=== PATIENT | female | born 1975 | race Hispanic/Latino ===

== ENCOUNTER 2016-10-15 07:27 | Emergency (ER) | payer MEDICARE ==
[2016-10-15 07:33] VITALS: RESP 16
[2016-10-15 08:36] LABS: RBC URINE 2 /hpf (0-3); URINE BILIRUBIN NEGATIVE (NEGATIVE); URINE BLOOD NEGATIVE (NEGATIVE); URINE COLOR Yellow (YELLOW); URINE GLUCOSE (UA) NORMAL (Normal); URINE KETONE NEGATIVE (NEGATIVE); URINE LEUKOCYTE ESTERASE NEG Leu/uL (Negative); URINE PROTEIN NEGATIVE (NEGATIVE); URINE UROBILINOGEN NORMAL mg/dL (0.2-1.0); WBC URINE 2 /hpf (0-5)
--- NOTE | 2016-10-15 08:53 | C.PDOC ---
History Of Present Illness 40 y/o female presents to ED requesting a test for diabetes. Patient reports increased urinary frequency for the last few months. She states she could not see her PCP because he is on vacation. Denies any other symptoms. Time Seen by Provider: 10/15/16 07:40 Chief Complaint (Nursing): Female Genitourinary History Per: Patient History/Exam Limitations: no limitations Onset/Duration Of Symptoms: Days Current Symptoms Are (Timing): Still Present Recent travel outside of the [place] States: No Past Medical History Reviewed: Historical Data, Nursing Documentation, Vital Signs Vital Signs: Last Vital Signs Temp 97.4 F L 10/15/16 07:32 Pulse 84 10/15/16 07:32 Resp 16 10/15/16 07:32 BP 120/84 10/15/16 07:32 Pulse Ox 98 10/15/16 08:53 - Medical History PMH: Bipolar Disorder, Depression, HTN Family History: States: Unknown Family Hx - Social History Hx Alcohol Use: No Hx Substance Use: No Review Of Systems Except As Marked, All Systems Reviewed And Found Negative. Constitutional: Negative for: Fever, Chills Cardiovascular: Negative for: Chest Pain Respiratory: Negative for: Shortness of Breath, Wheezing Genitourinary: Positive for: Frequency. Negative for: Dysuria Skin: Negative for: Rash Physical Exam - Physical Exam Appears: Non-toxic, No Acute Distress Skin: Normal Color, Warm, Dry Head: Atraumatic, Normacephalic Oral Mucosa: Moist Chest: Symmetrical Cardiovascular: Rhythm Regular Respiratory: Normal Breath Sounds, No Rales, No Rhonchi, No Wheezing Gastrointestinal/Abdominal: Soft, No Tenderness Back: Normal Inspection Extremity: Normal ROM, Capillary Refill (< 2 sec. ) Neurological/Psych: Oriented x3, Normal Speech, Normal Cognition ED Course And Treatment O2 Sat by Pulse Oximetry: 98 (RA) Pulse Ox Interpretation: Normal Progress Note: Fingerstick blood glucose test and UA ordered, reviewed. Medical Decision Making Medical Decision Making: UA normal POC glu 104 Disposition - Disposition Referrals: [facility] [Outside] Disposition: HOME/ ROUTINE Disposition Time: 09:23 Condition: GOOD Additional Instructions: Follow up with you PCP Take all usual meds Forms: General Discharge Instructions - Clinical Impression Clinical Impression: Encounter for medical screening examination - Scribe Statement The provider has reviewed the documentation as recorded by the Scribe Hugh Washburna Provider Attestation: All medical record entries made by the Victoriano were at my direction and personally dictated by me. I have reviewed the chart and agree that the record accurately reflects my personal performance of the history, physical exam, medical decision making, and the department course for this patient. I have also personally directed, reviewed, and agree with the discharge instructions and disposition.
[2016-10-15 09:30] VITALS: BP 128/70; PULSE 79; TEMP 98.2; O2SAT 100
== END 2016-10-15 09:29 | disposition home or self-care (01) ==
LOC: C.ER 07:27
DX: Z13.1 Encounter for screening for diabetes mellitus (principal)

== ENCOUNTER 2017-05-10 02:54 | Emergency (ER) | payer MEDICARE ==
--- NOTE | 2017-05-10 03:13 | C.PDOC ---
History Of Present Illness Patient presents to ED with complaints of depression and suicidal ideation. Patient states taking Advil PM. Denies any physical complaints. Time Seen by Provider: 05/10/17 03:12 Chief Complaint (Nursing): Psychiatric Evaluation History Per: Patient History/Exam Limitations: no limitations Onset/Duration Of Symptoms: Hrs Current Symptoms Are (Timing): Still Present Suicide/Self Injury Attempted (Context): None Modifying Factor(s): None Associated Symptoms: Depression, Suicidal Thoughts. denies: Anger Recent travel outside of the [place] States: No Past Medical History Reviewed: Historical Data, Nursing Documentation, Vital Signs Vital Signs: Last Vital Signs Temp 98.4 F 05/10/17 05:30 Pulse 102 H 05/10/17 05:30 Resp 22 05/10/17 05:30 BP 136/87 05/10/17 05:30 Pulse Ox 97 05/10/17 06:33 - Medical History PMH: Bipolar Disorder, Depression, HTN Surgical History: No Surg Hx Family History: States: No Known Family Hx - Social History Hx Alcohol Use: No Hx Substance Use: No - Immunization History Hx Influenza Vaccination: No Review Of Systems Skin: Negative for: Rash Neurological: Negative for: Weakness Psych: Positive for: Depression, Suicidal ideation Physical Exam - Physical Exam Appears: Non-toxic, Other (Awake, alert, pleasant and cooperative) Skin: Warm, Dry Head: Normacephalic Eye(s): bilateral: Normal Inspection Oral Mucosa: Moist Chest: Symmetrical, No Tenderness Cardiovascular: Rhythm Regular Respiratory: No Rales, No Rhonchi, No Wheezing Gastrointestinal/Abdominal: Soft, No Tenderness Neurological/Psych: Oriented x3, Normal Speech, Normal Cognition ED Course And Treatment - Laboratory Results Result Diagrams: 05/10/17 03:27 05/10/17 03:27 O2 Sat by Pulse Oximetry: 97 (Room air) Pulse Ox Interpretation: Normal Progress Note: Ordered blood work and Urinalysis. Crisis notified. Disposition Counseled Patient/Family Regarding: Studies Performed, Diagnosis - Disposition Disposition Time: 03:13 Condition: UNKNOWN Forms: [facility] (Faroese) - Clinical Impression Clinical Impression: Depression - Scribe Statement The provider has reviewed the documentation as recorded by the Scribe Jluis Lucero All medical record entries made by the Scribe were at my direction and personally dictated by me. I have reviewed the chart and agree that the record accurately reflects my personal performance of the history, physical exam, medical decision making, and the department course for this patient. I have also personally directed, reviewed, and agree with the discharge instructions and disposition. Physician Patient Turnover Patient Signed Over To: Elton Escalante Handoff Comments: pending crisis eval and disposition
[2017-05-10 03:31] LABS: BASO # 0.1 K/uL (0.0-0.2); EOS # 0.4 K/uL (0.0-0.7); EOS % 3.4 % (0.0-4.0); HEMOGLOBIN 11.2 g/dL (11.0-16.0); LYMPH # 3.3 K/uL (1.0-4.3); LYMPH % 31.3 % (20.0-40.0); MEAN CELL VOLUME 78.5 fL (81.0-99.0); MEAN CORPUSCULAR HEMOGLOBIN 26.3 pg (27.0-31.0); MEAN CORPUSCULAR HGB CONC 33.5 g/dL (33.0-37.0); MEAN PLATELET VOLUME 8.2 fL (7.2-11.7); MONO # 0.7 K/uL (0.0-0.8); MONO % 6.9 % (0.0-10.0); NEUT % 57.4 % (50.0-75.0); RBC 4.25 Mil/uL (3.80-5.20); RED CELL DISTRIBUTION WIDTH 15.2 % (11.5-14.5); WHITE BLOOD COUNT 10.4 K/uL (4.8-10.8)
[2017-05-10 03:39] LABS: SQUAMOUS EPITHIAL 2 /hpf (0-5); URINE BACTERIA RARE (<OCC); URINE BILIRUBIN NEGATIVE (NEGATIVE); URINE CLARITY Hazy (Clear); URINE COLOR Yellow (YELLOW); URINE GLUCOSE (UA) NORMAL (Normal); URINE LEUKOCYTE ESTERASE NEG Leu/uL (Negative); URINE NITRATE NEGATIVE (NEGATIVE); URINE PROTEIN NEGATIVE (NEGATIVE); URINE UROBILINOGEN NORMAL mg/dL (0.2-1.0)
[2017-05-10 03:40] LABS: HCG,QUALITATIVE URINE NEGATIVE (NEGATIVE); URINE BLOOD TRACE (NEGATIVE)
[2017-05-10 03:45] LABS: BARBITURATES, UR NEGATIVE (NEGATIVE); BENZODIAZEPINES, UR NEGATIVE (NEGATIVE); OPIATES, UR NEGATIVE (NEGATIVE); PHENCYCLIDINE, UR NEGATIVE (NEGATIVE)
[2017-05-10 03:47] LABS: ALB/GLOB RATIO 1.2 (1.0-2.1); ALT/SGPT 27 U/L (9-52); AST/SGOT 15 U/L (14-36); BLOOD UREA NITROGEN 15 mg/dL (7-17); CALCIUM 7.9 mg/dl (8.6-10.4); GFR AFRICAN-AMERICAN > 60; GFR NON-AFRICAN AMERICAN > 60
[2017-05-10 10:57] VITALS: BP 130/82; PULSE 70; RESP 16; TEMP 98.7; O2SAT 99
--- NOTE | 2017-05-10 11:31 | RAD ---
HISTORY: psych COMPARISON: No prior. FINDINGS: LUNGS: No active pulmonary disease. PLEURA: No significant pleural effusion identified, no pneumothorax apparent. CARDIOVASCULAR: Normal. OSSEOUS STRUCTURES: No significant abnormalities. VISUALIZED UPPER ABDOMEN: Normal. OTHER FINDINGS: None. IMPRESSION: No active disease.
== END 2017-05-10 11:45 | disposition short-term general hospital (02) ==
LOC: C.ER 02:54
DX: F32.9 Major depressive disorder, single episode, unspecified (principal)
CPT/HCPCS: 71045; 80053; 81001; 84703; 85025; 99285; G0480

== ENCOUNTER 2017-08-29 16:16 | Inpatient (IN) | payer MEDICAID, MEDICARE ==
[2017-08-29 16:21] VITALS: BMI 23.5
[2017-08-29 17:07] LABS: BASO # 0.1 K/uL (0.0-0.2); BASO % 0.9 % (0.0-2.0); EOS # 0.3 K/uL (0.0-0.7); EOS % 2.8 % (0.0-4.0); HEMOGLOBIN 11.7 g/dL (11.0-16.0); LYMPH # 2.9 K/uL (1.0-4.3); LYMPH % 31.4 % (20.0-40.0); MEAN CELL VOLUME 78.7 fL (81.0-99.0); MEAN CORPUSCULAR HEMOGLOBIN 25.6 pg (27.0-31.0); MEAN CORPUSCULAR HGB CONC 32.6 g/dL (33.0-37.0); MEAN PLATELET VOLUME 7.7 fL (7.2-11.7); MONO # 0.8 K/uL (0.0-0.8); MONO % 8.4 % (0.0-10.0); NEUT # 5.2 K/uL (1.8-7.0); NEUT % 56.5 % (50.0-75.0); RBC 4.57 Mil/uL (3.80-5.20); RED CELL DISTRIBUTION WIDTH 16.5 % (11.5-14.5); WHITE BLOOD COUNT 9.2 K/uL (4.8-10.8)
[2017-08-29 17:14] LABS: HCG,QUALITATIVE URINE NEGATIVE (NEGATIVE)
[2017-08-29 17:15] LABS: URINE BILIRUBIN NEGATIVE (NEGATIVE); URINE BLOOD NEGATIVE (NEGATIVE); URINE CLARITY Clear (Clear); URINE GLUCOSE (UA) NORMAL (Normal); URINE PROTEIN NEGATIVE (NEGATIVE); URINE UROBILINOGEN NORMAL mg/dL (0.2-1.0)
[2017-08-29 17:16] LABS: SQUAMOUS EPITHIAL 1 /hpf (0-5); URINE BACTERIA OCC (<OCC); URINE LEUKOCYTE ESTERASE NEG Leu/uL (Negative)
[2017-08-29 17:24] LABS: ALB/GLOB RATIO 1.2 (1.0-2.1); ALBUMIN 4.2 g/dL (3.5-5.0); ALT/SGPT 18 U/L (9-52); AST/SGOT 20 U/L (14-36); BLOOD UREA NITROGEN 11 mg/dL (7-17); CALCIUM 9.4 mg/dl (8.6-10.4); GFR AFRICAN-AMERICAN > 60; GFR NON-AFRICAN AMERICAN > 60
[2017-08-29 17:27] LABS: URINE COLOR YELLOW (YELLOW)
[2017-08-29 17:44] LABS: BARBITURATES, UR NEGATIVE (NEGATIVE); BENZODIAZEPINES, UR NEGATIVE (NEGATIVE); OPIATES, UR NEGATIVE (NEGATIVE); PHENCYCLIDINE, UR NEGATIVE (NEGATIVE)
--- NOTE | 2017-08-29 19:50 | C.PDOC ---
History Of Present Illness 41 y/o female presents to the ED complaining of feeling suicidal. Patient has a PMHx of depression. States she has a plan to overdose on pills but has not attempted to do so. No physical complaints offered. Time Seen by Provider: 08/29/17 16:20 Chief Complaint (Nursing): Psychiatric Evaluation History Per: Patient History/Exam Limitations: no limitations Onset/Duration Of Symptoms: Days Current Symptoms Are (Timing): Still Present Past Medical History Reviewed: Historical Data, Nursing Documentation, Vital Signs Vital Signs: Last Vital Signs Temp 97.8 F 08/29/17 19:57 Pulse 97 H 08/29/17 19:57 Resp 16 08/29/17 19:57 BP 126/68 08/29/17 19:57 Pulse Ox 96 08/29/17 20:30 - Medical History PMH: Bipolar Disorder, Depression, HTN Denies: Diabetes, Hepatitis, HIV, Seizures, Sexually Transmitted Disease Surgical History: No Surg Hx Family History: States: Unknown Family Hx - Social History Hx Alcohol Use: No Hx Substance Use: No - Immunization History Hx Tetanus Toxoid Vaccination: No Hx Influenza Vaccination: No Hx Pneumococcal Vaccination: No Review Of Systems Except As Marked, All Systems Reviewed And Found Negative. Psych: Positive for: Depression, Suicidal ideation Physical Exam - Physical Exam Appears: No Acute Distress, Chronically Ill (chronically mentally ill appearing) , Other (morbidly obese) Skin: Warm, Dry Head: Atraumatic, Normacephalic Eye(s): bilateral: Normal Inspection, PERRL, EOMI Oral Mucosa: Moist Neck: Normal ROM, Supple Chest: Symmetrical Cardiovascular: Rhythm Regular, No Murmur Respiratory: Normal Breath Sounds, No Rales, No Rhonchi, No Wheezing Gastrointestinal/Abdominal: Normal Exam, Soft, No Tenderness Extremity: Bilateral: Atraumatic, Normal Color And Temperature, Normal ROM Neurological/Psych: Oriented x3, Normal Speech, Other (Flat affect) ED Course And Treatment - Laboratory Results Result Diagrams: 08/29/17 17:04 08/29/17 17:04 Lab Interpretation: Normal (tox/etoh neg) Urine POC: Negative O2 Sat by Pulse Oximetry: 96 (RA) Pulse Ox Interpretation: Normal Reevaluation Time: 19:49 Reassessment Condition: Unchanged - Physician Consult Information Outcome Of Conversation: 1930: d/w Crisis, ok to admit. Medical Decision Making Medical Decision Making: Impression: depression, suicidal ideation with plan Initial Plan: --Alcohol serum --Urine drug screen --CMP --CBC --Urine HCG --Urinalysis --Patient placed on 1:1 observation --hot tamale worker will evaluate patient Labs reviewed, no emergently significant abnormalities. Patient is cleared for psychiatric admission. Case discussed with baking factory worker, patient will be admitted inpatient for depression under the service of Dr. Braden Disposition Doctor Will See Patient In The: Hospital Counseled Patient/Family Regarding: Studies Performed, Diagnosis - Disposition Disposition: HOSPITALIZED Disposition Time: 19:49 Condition: GOOD - Clinical Impression Clinical Impression: Depression - Scribe Statement The provider has reviewed the documentation as recorded by the Scribe (Kathy Sanchez) Provider Attestation: All medical record entries made by the Scribe were at my direction and personally dictated by me. I have reviewed the chart and agree that the record accurately reflects my personal performance of the history, physical exam, medical decision making, and the department course for this patient. I have also personally directed, reviewed, and agree with the discharge instructions and disposition.
--- NOTE | 2017-08-29 22:39 | CP.PCM.CON ---
<Sabina Carrington - Last Filed: 08/29/17 22:39> History of Present Illness - History of Present Illness History of Present Illness: HPI: Patient is a 41 year old female with a past medical history of bipolar disorder, GERD, and hypertension who presents for suicidal ideation. Medicine team was consulted for possible exposure to HIV. Patient says she was having a manic episode and had unprotected vaginal intercourse yesterday afternoon with a stranger. Patient says she does not know his history and is worried she may have contracted HIV from him. Patient admits to a 2 day history of thick, white , malodorous vaginal discharge as well as dysuria with dark malodorous urine. Patient also complains of associated headache and dizziness. She denies fever, chills, chest pain, SOB, palpitations, cough, sore throat, abdominal pain, nausea, vomiting, diarrhea, constipation, and lower extremity pain/swelling. PMH: bipolar disorder, GERD, and hypertension Meds: Norvasc 10 mg QD, Prilosec 20 mg QD, Wellbutrin XL 150 mg QD, Lamictal 100 mg QD, Ambien 10 mg Allergies: denies PSH: denies FH: unknown; patient was in foster care as a child SH: denies smoking, alcohol, and drug use Review of Systems - Review of Systems All systems: reviewed and no additional remarkable complaints except (as per HPI ) Past Patient History - Infectious Disease Hx of Infectious Diseases: None - Past Social History Smoking Status: Never Smoked - CARDIAC Hx Hypertension: Yes - PULMONARY Hx Tuberculosis: No - NEUROLOGICAL Hx Seizures: No - HEMATOLOGICAL/ONCOLOGICAL Hx Human Immunodeficiency Virus (HIV): No - GASTROINTESTINAL Hx Gastroesophageal Reflux: Yes - GENITOURINARY/GYNECOLOGICAL Hx Sexually Transmitted Disorders: No - PSYCHIATRIC Hx Substance Use: Yes - SURGICAL HISTORY Hx Surgeries: No - ANESTHESIA Hx Anesthesia: No Meds Allergies/Adverse Reactions: Allergies Allergy/AdvReac Type Severity Reaction Status Date / Time No Known Allergies Allergy Verified 05/10/17 03:02 - Medications Medications: Current Medications Amlodipine Besylate (Norvasc) 10 mg PO DAILY DEANNA Miconazole (Monistat 3) 200 mg VAG HS DEANNA Stop: 08/31/17 22:01 Nitrofurantoin Macrocrystals (Macrobid) 100 mg PO Q12H DEANNA PRN Reason: Protocol Physical Exam - Constitutional Appears: Non-toxic, No Acute Distress - Head Exam Head Exam: ATRAUMATIC, NORMAL INSPECTION, NORMOCEPHALIC - Eye Exam Eye Exam: EOMI, Normal appearance, PERRL - ENT Exam ENT Exam: Mucous Membranes Moist - Neck Exam Neck exam: Negative for: Lymphadenopathy, Thyromegaly - Respiratory Exam Respiratory Exam: Clear to Auscultation Bilateral, NORMAL BREATHING PATTERN. absent: Rales, Rhonchi, Wheezes - Cardiovascular Exam Cardiovascular Exam: RRR, +S1, +S2 - GI/Abdominal Exam GI & Abdominal Exam: Normal Bowel Sounds, Soft. absent: Distended, Tenderness - Extremities Exam Extremities exam: Positive for: normal inspection. Negative for: calf tenderness, pedal edema - Neurological Exam Neurological exam: Alert, Oriented x3 - Psychiatric Exam Psychiatric exam: Depressed - Skin Skin Exam: Dry, Intact, Normal Color, Rash (non pruritic, macular rash of chest) , Warm Results - Vital Signs Recent Vital Signs: Last Vital Signs Temp 97.8 F 08/29/17 19:57 Pulse 97 H 08/29/17 19:57 Resp 18 08/29/17 21:37 BP 126/68 08/29/17 19:57 Pulse Ox 96 08/29/17 20:31 - Labs Result Diagrams: 08/29/17 17:04 08/29/17 17:04 Labs: Laboratory Results - last 24 hr 08/29/17 08/29/17 08/29/17 17:04 17:04 17:04 WBC 9.2 RBC 4.57 Hgb 11.7 Hct 35.9 MCV 78.7 L MCH 25.6 L MCHC 32.6 L RDW 16.5 H Plt Count 325 MPV 7.7 Neut % (Auto) 56.5 Lymph % (Auto) 31.4 [place] % (Auto) 8.4 Eos % (Auto) 2.8 Baso % (Auto) 0.9 Neut # (Auto) 5.2 Lymph # (Auto) 2.9 [place] # (Auto) 0.8 Eos # (Auto) 0.3 Baso # (Auto) 0.1 Sodium 143 Potassium 4.8 Chloride 105 Carbon Dioxide 23 Anion Gap 20 BUN 11 Creatinine 0.9 Est GFR ( Amer) > 60 Est GFR (Non-Af Amer) > 60 Random Glucose 112 H Calcium 9.4 Total Bilirubin 0.4 AST 20 ALT 18 Alkaline Phosphatase 59 Total Protein 7.6 Albumin 4.2 Globulin 3.4 Albumin/Globulin Ratio 1.2 Urine Color Yellow Urine Clarity Clear Urine pH 6.0 Ur Specific [place] 1.012 Urine Protein Negative Urine Glucose (UA) Normal Urine Ketones Negative Urine Blood Negative Urine Nitrate Positive H Urine Bilirubin Negative Urine Urobilinogen Normal Ur Leukocyte Esterase Neg Urine WBC (Auto) 1 Urine RBC (Auto) 1 Ur Squamous Epith Cells 1 Urine Bacteria Occ H Urine HCG, Qual Negative Urine Opiates Screen Urine Methadone Screen Ur Barbiturates Screen Ur Phencyclidine Scrn Ur Amphetamines Screen U Benzodiazepines Scrn U Oth Cocaine Metabols U Cannabinoids Screen Alcohol, Quantitative < 10 08/29/17 17:04 WBC RBC Hgb Hct MCV MCH MCHC RDW Plt Count MPV Neut % (Auto) Lymph % (Auto) [place] % (Auto) Eos % (Auto) Baso % (Auto) Neut # (Auto) Lymph # (Auto) [place] # (Auto) Eos # (Auto) Baso # (Auto) Sodium Potassium Chloride Carbon Dioxide Anion Gap BUN Creatinine Est GFR ( Amer) Est GFR (Non-Af Amer) Random Glucose Calcium Total Bilirubin AST ALT Alkaline Phosphatase Total Protein Albumin Globulin Albumin/Globulin Ratio Urine Color Urine Clarity Urine pH Ur Specific [place] Urine Protein Urine Glucose (UA) Urine Ketones Urine Blood Urine Nitrate Urine Bilirubin Urine Urobilinogen Ur Leukocyte Esterase Urine WBC (Auto) Urine RBC (Auto) Ur Squamous Epith Cells Urine Bacteria Urine HCG, Qual Urine Opiates Screen Negative Urine Methadone Screen Negative Ur Barbiturates Screen Negative Ur Phencyclidine Scrn Negative Ur Amphetamines Screen Negative U Benzodiazepines Scrn Negative U Oth Cocaine Metabols Negative U Cannabinoids Screen Negative Alcohol, Quantitative Assessment & Plan - Assessment and Plan (Free Text) Plan: Unprotected [place] * Potential Exposure to HIV and other STDs - within 72H window for PEP (see below) * f/u Hepatitis panel - may start Post Exposure Prophylaxis (PEP) once this comes back negative * PEP: Raltegravir 400 mg BID and Truvada (Tenofovir DF 300 mg/Emtricitabine 200 mg) daily * f/u Chlamydia/GC * Plan B 1-step per patient request Dysuria * UA positive for Nitrates and occ bacteria * f/u repeat UA * f/u urine culture * Macrobid 100 mg PO Q12 Vaginal Discharge * Likely yeast infection * Monistat History of Hypertension * continue Norvasc 10 mg History of GERD * Protonix 20 mg daily Prophylaxis * DVT: Heparin * GI: on protonix for GERD <Rick Bernard - Last Filed: 08/30/17 06:06> Meds - Medications Medications: Current Medications Al Hydrox/Mg Hydrox/Simethicone (Maalox 30 Ml) 30 ml PO Q6H PRN PRN Reason: Indigestion / Heartburn Last Admin: 08/30/17 01:13 Dose: 30 ml Amlodipine Besylate (Norvasc) 10 mg PO DAILY [facility] Bupropion HCl (Wellbutrin Xl) 150 mg PO DAILY DEANNA Hydroxyzine HCl (Atarax) 25 mg PO Q6 PRN PRN Reason: Anxiety Lamotrigine (Lamictal) 25 mg PO DAILY [facility] Miconazole Nitrate (Monistat 7 Vaginal Cream) 1 ea VG HS [facility] Last Admin: 08/30/17 00:21 Dose: 1 applic Nitrofurantoin Macrocrystals (Macrobid) 100 mg PO Q12H DEANNA PRN Reason: Protocol Last Admin: 08/29/17 22:57 Dose: 100 mg Pantoprazole Sodium (Protonix Ec Tab) 20 mg PO DAILY DEANNA Trazodone HCl (Desyrel) 100 mg PO HS DEANNA Last Admin: 08/29/17 23:53 Dose: 100 mg Results - Vital Signs Recent Vital Signs: Last Vital Signs Temp 97.8 F 08/29/17 19:57 Pulse 97 H 08/29/17 19:57 Resp 18 08/29/17 21:37 BP 126/68 08/29/17 19:57 Pulse Ox 96 08/29/17 20:31 - Labs Result Diagrams: 08/29/17 17:04 08/29/17 17:04 Labs: Laboratory Results - last 24 hr 08/29/17 08/29/17 08/29/17 17:04 17:04 17:04 WBC 9.2 RBC 4.57 Hgb 11.7 Hct 35.9 MCV 78.7 L MCH 25.6 L MCHC 32.6 L RDW 16.5 H Plt Count 325 MPV 7.7 Neut % (Auto) 56.5 Lymph % (Auto) 31.4 [place] % (Auto) 8.4 Eos % (Auto) 2.8 Baso % (Auto) 0.9 Neut # (Auto) 5.2 Lymph # (Auto) 2.9 [place] # (Auto) 0.8 Eos # (Auto) 0.3 Baso # (Auto) 0.1 Sodium 143 Potassium 4.8 Chloride 105 Carbon Dioxide 23 Anion Gap 20 BUN 11 Creatinine 0.9 Est GFR ( Amer) > 60 Est GFR (Non-Af Amer) > 60 Random Glucose 112 H Calcium 9.4 Total Bilirubin 0.4 AST 20 ALT 18 Alkaline Phosphatase 59 Total Protein 7.6 Albumin 4.2 Globulin 3.4 Albumin/Globulin Ratio 1.2 Urine Color Yellow Urine Clarity Clear Urine pH 6.0 Ur Specific [place] 1.012 Urine Protein Negative Urine Glucose (UA) Normal Urine Ketones Negative Urine Blood Negative Urine Nitrate Positive H Urine Bilirubin Negative Urine Urobilinogen Normal Ur Leukocyte Esterase Neg Urine WBC (Auto) 1 Urine RBC (Auto) 1 Ur Squamous Epith Cells 1 Urine Bacteria Occ H Urine HCG, Qual Negative Urine Opiates Screen Urine Methadone Screen Ur Barbiturates Screen Ur Phencyclidine Scrn Ur Amphetamines Screen U Benzodiazepines Scrn U Oth Cocaine Metabols U Cannabinoids Screen Alcohol, Quantitative < 10 08/29/17 17:04 WBC RBC Hgb Hct MCV MCH MCHC RDW Plt Count MPV Neut % (Auto) Lymph % (Auto) [place] % (Auto) Eos % (Auto) Baso % (Auto) Neut # (Auto) Lymph # (Auto) [place] # (Auto) Eos # (Auto) Baso # (Auto) Sodium Potassium Chloride Carbon Dioxide Anion Gap BUN Creatinine Est GFR ( Amer) Est GFR (Non-Af Amer) Random Glucose Calcium Total Bilirubin AST ALT Alkaline Phosphatase Total Protein Albumin Globulin Albumin/Globulin Ratio Urine Color Urine Clarity Urine pH Ur Specific [place] Urine Protein Urine Glucose (UA) Urine Ketones Urine Blood Urine Nitrate Urine Bilirubin Urine Urobilinogen Ur Leukocyte Esterase Urine WBC (Auto) Urine RBC (Auto) Ur Squamous Epith Cells Urine Bacteria Urine HCG, Qual Urine Opiates Screen Negative Urine Methadone Screen Negative Ur Barbiturates Screen Negative Ur Phencyclidine Scrn Negative Ur Amphetamines Screen Negative U Benzodiazepines Scrn Negative U Oth Cocaine Metabols Negative U Cannabinoids Screen Negative Alcohol, Quantitative Assessment & Plan - Date & Time Date: 08/30/17 (I have seen and examined the patient. I agree with the findings and plan of care as documented by Dr. Carrington. Medicine team consulted due to high risk sexual behavior. Unprotected vaginal intercourse. Check hepatitis panel and liver function before starting PEP regimen. Also with dysuria. Positive for nitrates. Macrobid for now. Urine culture. Monitor for acute changes.) Time: 06:04 Attending/Attestation - Attestation I have personally seen and examined this patient.: Yes I have fully participated in the care of the patient.: Yes I have reviewed all pertinent clinical information: Yes
[2017-08-29] MEDS ORDERED: Miconazole 2% Vaginal Cream(45 gm) VAG SCH (23:18)
[2017-08-30] MEDS: Miconazole 2% Vaginal Cream(45 gm) VG SCH ×2 (00:21→22:08)
[2017-08-30] MEDS: Aluminum Hydroxide/Magnesium Hydroxide Susp (30 mL) PO PRN ×2 (01:13→23:44)
--- NOTE | 2017-08-30 02:54 | PCM.BM ---
<Mary Sparrow - Last Filed: 08/30/17 02:53> Treatment Plan Problems - Problems identified on initial assessmt Depression Date Initiated: 08/29/17 Time Initiated: 20:20 Assessment reference: NA Status: Active Suicidal Ideation Date Initiated: 08/29/17 Time Initiated: 20:20 Assessment reference: NA Status: Monitor Treatment assets and liabiliti Patient Assests: ADL independent, negotiates basic needs Patient Liabilities: poor support system, relationship conflicts - Milieu Protocol Maintain good personal hygiene: daily Encourage regular showers, daily Remind patient to perform daily oral care, every shift Assist patient to perform ADL's Conduct patient checks and document Observation sheet: Q15 minutes Maintain personal safety: every shift Educate patient to report safety concerns to staff, every shift Monitor environment for contraband/sharps Medication safety: Monitor for expected outcome, potential side effects: every shift, Assess barriers to learning: every shift, Assess readiness for medication education: every shift <Zuleika Guzman - Last Filed: 09/01/17 13:27> Family Contact Family involvement: Famliy/SO not involved - Goals for Treatment Patient goals for treatment: "I need therapy." Discharge/Continuing Care - Education Needs Education Needs: Patient Medication, Patient Coping Skills - Discharge Discharge Criteria: Tolerates medication w/o severe side effects, Reduction of target symptoms Discharge to:: Home - Treatment Team Participation Discussed with Family/SO: No Was Patient/Family/SO present at Treatment Team Meeting: Yes <Dariela Patel - Last Filed: 09/01/17 16:57> - Diagnosis (1) Depression Status: Acute Interventions: 09/01/17 16:56 * Assess/adjust medications daily and /or as needed * See patient on an individual basis 7x/week to assess symptoms of depression * Monitor for side effects & effectiveness of medications *
[2017-08-30] MEDS: Pantoprazole 20 mg EC Tab PO SCH ×2 (08:44→10:33)
[2017-08-30] MEDS: buPROPion 150 mg/24 Hours XL Tab PO SCH (09:54)
--- NOTE | 2017-08-30 11:23 | CP.PCM.PN ---
Subjective - Date & Time of Evaluation Date of Evaluation: 08/30/17 Time of Evaluation: 11:10 - Subjective Subjective: Patient was seen and examined by me She was not in any acute distress. She was walking in the hallway As mentioned in the previous H & P she was concerned about possible STD exposure. She denied chest pain, denied shortness of breath, denied palpitations. Last night's team ordered hepatitis study and GC Chlymadia was ordered, will also check RPR, HIV 1,2 and HIV 4th generation study as well. The UA will be repeated - for now she was started on macrobid - agree with this. She reports some vaginal discharge that is scant and clear, she was already started on mono stat 7 by psychiatry, I agree with this Objective - Vital Signs/Intake and Output Vital Signs (last 24 hours): Temp Pulse Resp BP Pulse Ox 98.0 F 74 20 122/67 98 08/30/17 06:44 08/30/17 06:44 08/30/17 06:44 08/30/17 06:44 08/30/17 06:44 - Medications Medications: Current Medications Acetaminophen (Tylenol 325mg Tab) 650 mg PO Q6 PRN PRN Reason: Headache Al Hydrox/Mg Hydrox/Simethicone (Maalox 30 Ml) 30 ml PO Q6H PRN PRN Reason: Indigestion / Heartburn Last Admin: 08/30/17 01:13 Dose: 30 ml Amlodipine Besylate (Norvasc) 10 mg PO DAILY [facility] Last Admin: 08/30/17 09:54 Dose: 10 mg Bupropion HCl (Wellbutrin Xl) 150 mg PO DAILY [facility] Last Admin: 08/30/17 09:54 Dose: 150 mg Diphenhydramine HCl (Benadryl) 25 mg PO TID [facility] Stop: 09/01/17 14:01 Hydroxyzine HCl (Atarax) 25 mg PO Q6 PRN PRN Reason: Anxiety Lamotrigine (Lamictal) 25 mg PO DAILY [facility] Last Admin: 08/30/17 09:54 Dose: 25 mg Lamotrigine (Lamictal) 100 mg PO QPM [facility] Miconazole Nitrate (Monistat 7 Vaginal Cream) 1 ea VG HS [facility] Last Admin: 08/30/17 00:21 Dose: 1 applic Nitrofurantoin Macrocrystals (Macrobid) 100 mg PO Q12H [facility] PRN Reason: Protocol Last Admin: 08/30/17 09:54 Dose: 100 mg Pantoprazole Sodium (Protonix Ec Tab) 20 mg PO DAILY [facility] Last Admin: 08/30/17 10:33 Dose: Not Given Trazodone HCl (Desyrel) 100 mg PO [facility] Last Admin: 08/29/17 23:53 Dose: 100 mg Zolpidem Tartrate (Ambien) 5 mg PO [facility] - Labs Labs: 08/29/17 17:04 08/29/17 17:04 - Constitutional Appears: Well, Non-toxic, No Acute Distress - Head Exam Head Exam: NORMAL INSPECTION - Eye Exam Eye Exam: EOMI, Normal appearance - ENT Exam ENT Exam: Mucous Membranes Moist - Respiratory Exam Respiratory Exam: Clear to Ausculation Bilateral, NORMAL BREATHING PATTERN - GI/Abdominal Exam GI & Abdominal Exam: Soft, Normal Bowel Sounds - Neurological Exam Neurological Exam: Alert, Oriented x3 Neuro motor strength exam: Left Upper Extremity: 5, Right Upper Extremity: 5, Left Lower Extremity: 5, Right Lower Extremity: 5 - Psychiatric Exam Psychiatric exam: Normal Affect, Normal Mood - Skin Skin Exam: Normal Color, Warm Assessment and Plan - Assessment and Plan (Free Text) Assessment: Unprotected [place] 08/30: Ordered HIV 1,2 antibody as well as HIV 4th generation. RPR, and GC/ Chymadia ordered as well. * Potential Exposure to HIV and other STDs - within 72H window for PEP (see below) * f/u Hepatitis panel - may start Post Exposure Prophylaxis (PEP) once this comes back negative * PEP: Raltegravir 400 mg BID and Truvada (Tenofovir DF 300 mg/Emtricitabine 200 mg) daily * f/u Chlamydia/GC * Plan B 1-step per patient request Dysuria * UA positive for Nitrates and occ bacteria * f/u repeat UA * f/u urine culture * Macrobid 100 mg PO Q12 Vaginal Discharge 08/30: Was started on monostat 7. Agree with this. Pending further urine studies On Macrobid as well. History of Hypertension * continue Norvasc 10 mg History of GERD * Protonix 20 mg daily Prophylaxis * DVT: Heparin * GI: on protonix for GERD
--- NOTE | 2017-08-30 11:33 | PCM.PSYCH ---
Initial Psychiatric Evaluation - Initial Psychiatric Evaluation Type of Admission: Voluntary Legal Status: Capacity Chief Complaint (in patient's own words): "Depressed" History of Present Illness and Precipitating Events: The pt is seen, chart reviewed, case discussed She is a 41 y/o LF, single, no child, unemployed and lives alone. She reports feeling suicidal last 2-3 days, depressed x weeks, and reports other depressive sxs. She has been dx'ed with bipolar d/o and reports a manic episode in the past but denies psychosis and jennifer now. A new stressor is an unprotected sex she had with someone she did not know much. She also has financial stressors. Denies drugs, alcohol or cigarettes. Past psych hx: 2 joaquín attempts years ago, previous psych admissions On Lamictal 100 mg, wellbutrin xl 150, ambien 10 Family psych hx: Adopted child but she known mo haad bipolar d/o Medical hx: GERD, HTN, obese Current Medications: Active Medications Generic Name Dose Route Start Last Admin Trade Name Freq PRN Reason Stop Dose Admin Acetaminophen 650 mg 08/30/17 11:18 Tylenol 325mg Tab PO Q6 PRN Headache Al Hydrox/Mg Hydrox/Simethicone 30 ml 08/30/17 01:09 08/30/17 01:13 Maalox 30 Ml PO 30 ml Q6H PRN Administration Indigestion / Heartburn Amlodipine Besylate 10 mg 08/30/17 10:00 08/30/17 09:54 Norvasc PO 10 mg DAILY [facility] Administration Bupropion HCl 150 mg 08/30/17 10:00 08/30/17 09:54 Wellbutrin Xl PO 150 mg DAILY [facility] Administration Diphenhydramine HCl 25 mg 08/30/17 14:00 Benadryl PO 09/01/17 14:01 TID [facility] Hydroxyzine HCl 25 mg 08/29/17 23:51 Atarax PO Q6 PRN Anxiety Lamotrigine 25 mg 08/30/17 10:00 08/30/17 09:54 Lamictal PO 25 mg DAILY [facility] Administration Lamotrigine 100 mg 08/30/17 18:00 Lamictal PO QPM [facility] Miconazole Nitrate 1 ea 08/29/17 23:45 08/30/17 00:21 Monistat 7 Vaginal Cream VG 1 applic HS [facility] Administration Nitrofurantoin Macrocrystals 100 mg 08/29/17 22:30 08/30/17 09:54 Macrobid PO 100 mg Q12H [facility] Administration Protocol Pantoprazole Sodium 20 mg 08/30/17 08:30 08/30/17 10:33 Protonix Ec Tab PO Not Given DAILY [facility] Trazodone HCl 100 mg 08/29/17 23:45 08/29/17 23:53 Desyrel PO 100 mg HS [facility] Administration Zolpidem Tartrate 5 mg 08/30/17 22:00 Ambien PO HS [facility] Past Psychiatric History - Past Psychiatric History Previous Treatment History: Inpatient Pertinent Medical Hx (Current Medical&Sleep Prob, Allergies): Allergies Allergy/AdvReac Type Severity Reaction Status Date / Time No Known Allergies Allergy Verified 05/10/17 03:02 Norvasc 10 mg PO DAILY 10/15/16 Omeprazole Magnesium [Prilosec Otc] 20 mg PO DAILY 10/15/16 Zolpidem [Ambien] 1 tab PO HS 10/15/16 buPROPion XL [Wellbutrin XL] 150 mg PO DAILY 10/15/16 lamoTRIgine [Lamictal] 100 mg PO DAILY 10/15/16 Review of Systems - Neurological Neurological: UNREMARKABLE - Psychiatric Psychiatric: Abnormal Sleep Pattern, Anhedonia, Anxiety, Change in Appetite, Depression, Difficulty Concentrating, Mood Swings. absent: Hallucinations, Homicidal Ideation, Suicidal Ideation Mental Status Examination - Personal Presentation Personal Presentation: Looks stated age - Affect Affect: Constricted - Motor Activity Motor Activity: Calm - Reliability in Providing Information Reliability in Providing Information: Good - Speech Speech: Organized - Mood Mood: Depressed, Anxious - Formal Thought Process Formal Thought Process: No Impairment - Cognitive Functions Orientation: Person, Place, Situation, Time Sensorium: Alert Attention/Concentration: Attentive Abstract Thinking: [place] Estimate of Intelligence: Average Judgement: Intact, as evidence by: Insight regarding need for hospitalization Memory: Recent intact, as evidence by: Ability to recall events of the day, Remote intact, as evidenced by: Abilit to recall sig. life events - Risk Risk: Diminished functioning - Strength & Assets Inventory Strength & Assets Inventory: Cooperative - Limitations Limitations: Living alone, Other DSM 5 DX - DSM 5 DSM 5 Diagnosis: Bipolar I d/o - depressed, severe - Recommended/Plan of Treatment Treatment Recommendations and Plan of Treatment: Start Lamictal as 125 mg and go up to 150 Prn medications All risks, benefits and alternatives of medications, including no medications, discussed and the patient understood and agreed. Attend groups and activities Individual therapy Psychoeducation and support Encourage compliance with meds and after care Refer to outpatient program Teach healthy lifestyle methods, i.e. diet, exercise, meditation Smoking cessation STD work up 32 min Projected ELOS: 5-6 days Prognosis: good w treatment
[2017-08-30 14:56] LABS: SQUAMOUS EPITHIAL 4 /hpf (0-5); URINE BACTERIA FEW (<OCC); URINE BILIRUBIN NEGATIVE (NEGATIVE); URINE BLOOD NEGATIVE (NEGATIVE); URINE CLARITY Hazy (Clear); URINE COLOR Yellow (YELLOW); URINE GLUCOSE (UA) NORMAL (Normal); URINE LEUKOCYTE ESTERASE NEG Leu/uL (Negative); URINE PROTEIN NEGATIVE (NEGATIVE); URINE UROBILINOGEN NORMAL mg/dL (0.2-1.0)
[2017-08-30] MEDS ORDERED: Miconazole 2% Vaginal Cream(45 gm) VAG SCH (22:00)
[2017-08-31 06:27] VITALS: O2SAT 99
[2017-08-31] MEDS ORDERED: Pantoprazole 20 mg EC Tab PO SCH (08:00)
[2017-08-31] MEDS: buPROPion 150 mg/24 Hours XL Tab PO SCH (09:11)
[2017-08-31] MEDS: Emtricitabine-Tenofovir 200 mg-300 mg Tab PO SCH (10:58)
--- NOTE | 2017-08-31 12:59 | CP.PCM.PN ---
Subjective - Date & Time of Evaluation Date of Evaluation: 08/31/17 Time of Evaluation: 12:52 - Subjective Subjective: PGY 2 progress note for medicine Pt seen and examined this am. Patient states overnight, she had a lot of heart burn. Patient currently denies having any acid reflux symptoms, CP, SOB, abd pain, N/V/D/C. Patient is complaining of diffuse flat rash on her chest and back that began about 3 weeks ago. Denies having any new products applied ot that area, denies having any new clothing. Patient has not tried any topical creams for the area. Rash is non-pruritic. Objective - Vital Signs/Intake and Output Vital Signs (last 24 hours): Temp Pulse Resp BP Pulse Ox 97.7 F 71 16 130/66 99 08/31/17 06:27 08/31/17 06:27 08/31/17 06:27 08/31/17 06:27 08/31/17 06:27 - Medications Medications: Current Medications Acetaminophen (Tylenol 325mg Tab) 650 mg PO Q6 PRN PRN Reason: Headache Last Admin: 08/30/17 22:13 Dose: 650 mg Al Hydrox/Mg Hydrox/Simethicone (Maalox 30 Ml) 30 ml PO Q6H PRN PRN Reason: Indigestion / Heartburn Last Admin: 08/30/17 23:44 Dose: 30 ml Amlodipine Besylate (Norvasc) 10 mg PO DAILY [facility] Last Admin: 08/31/17 09:12 Dose: 10 mg Bupropion HCl (Wellbutrin Xl) 150 mg PO DAILY [facility] Last Admin: 08/31/17 09:11 Dose: 150 mg Diphenhydramine HCl (Benadryl) 25 mg PO TID [facility] Stop: 09/01/17 14:01 Last Admin: 08/31/17 09:12 Dose: 25 mg Emtricitabine/Tenofovir (Truvada 200 Mg-300 Mg) 1 tab PO DAILY [facility] PRN Reason: Protocol Last Admin: 08/31/17 10:58 Dose: 1 tab Hydroxyzine HCl (Atarax) 25 mg PO Q6 PRN PRN Reason: Anxiety Last Admin: 08/31/17 01:30 Dose: 25 mg Lamotrigine (Lamictal) 25 mg PO DAILY [facility] Last Admin: 08/31/17 09:11 Dose: 25 mg Lamotrigine (Lamictal) 100 mg PO QPM [facility] Last Admin: 08/30/17 17:20 Dose: 100 mg Miconazole Nitrate (Monistat 7 Vaginal Cream) 1 ea VG HS [facility] Last Admin: 08/30/17 22:08 Dose: 1 applic Nitrofurantoin Macrocrystals (Macrobid) 100 mg PO Q12H [facility] PRN Reason: Protocol Last Admin: 08/31/17 09:32 Dose: 100 mg Pantoprazole Sodium (Protonix Ec Tab) 20 mg PO DAILY@0800 [facility] Last Admin: 08/31/17 07:48 Dose: 20 mg Raltegravir (Isentress) 400 mg PO BID [facility] PRN Reason: Protocol Last Admin: 08/31/17 10:58 Dose: 400 mg Zolpidem Tartrate (Ambien) 5 mg PO [facility] Last Admin: 08/30/17 22:03 Dose: 5 mg - Labs Labs: 08/29/17 17:04 08/29/17 17:04 - Constitutional Appears: Non-toxic, No Acute Distress - Head Exam Head Exam: ATRAUMATIC - ENT Exam ENT Exam: Mucous Membranes Moist - Respiratory Exam Respiratory Exam: Clear to Ausculation Bilateral. absent: Accessory Muscle Use , Rales, Rhonchi, Wheezes, Respiratory Distress - Cardiovascular Exam Cardiovascular Exam: REGULAR RHYTHM, +S1, +S2. absent: Gallop, Rubs, Murmur - GI/Abdominal Exam GI & Abdominal Exam: Soft, Normal Bowel Sounds. absent: Distended, Firm, Guarding, Rigid, Tenderness, Organomegaly - Extremities Exam Extremities Exam: absent: Pedal Edema, Tenderness - Neurological Exam Neurological Exam: Alert, Awake, Oriented x3 - Psychiatric Exam Psychiatric exam: Normal Affect, Normal Mood - Skin Skin Exam: Dry, Intact, Normal Color, Warm Additional comments: flat mildly erythematuous rash on chest, non-pruritic Assessment and Plan - Assessment and Plan (Free Text) Assessment: Unprotected [place] 08/31: HIV 1,2 4th gen results pending. Hepatitis pending. Patient started on PEP: Truvada 1 tab po QD and Isentress 400 mg po BID. Continue these medications for 1 month. Patient will require repeat HIV testing after completing course of these meds. Patient is made aware of this and is told to follow up at the [facility]. 08/30: Ordered HIV 1,2 antibody as well as HIV 4th generation. RPR, and GC/ Chymadia ordered as well. * Potential Exposure to HIV and other STDs - within 72H window for PEP (see below) * f/u Hepatitis panel - may start Post Exposure Prophylaxis (PEP) once this comes back negative * PEP: Raltegravir 400 mg BID and Truvada (Tenofovir DF 300 mg/Emtricitabine 200 mg) daily * f/u Chlamydia/GC * Plan B 1-step per patient request Dysuria * Improved * UA positive for Nitrates and occ bacteria * f/u repeat UA * f/u urine culture * Macrobid 100 mg PO Q12 Vaginal Discharge 08/30: Was started on monostat 7. Agree with this. Urine culture is contaminated. Repat UA was negative On Macrobid as well. History of Hypertension * continue Norvasc 10 mg History of GERD * Protonix 40 mg daily Rash * 0.5% hydrocortisone cream to be applied to affected area BID Prophylaxis * DVT: Heparin * GI: on protonix for GERD Case discussed with attending, Dr. Flynn
[2017-08-31] MEDS ORDERED: Pantoprazole 40 mg EC Tab PO SCH ×2 (13:05→22:00)
[2017-08-31] MEDS ORDERED: Hydrocortisone 0.5% Cream(30 gm) TOP SCH (18:00)
[2017-08-31] MEDS: Hydrocortisone 1% Cream (30 GM) TOP SCH (18:10)
[2017-08-31] MEDS: Miconazole 2% Vaginal Cream(45 gm) VG SCH (21:40)
[2017-09-01] MEDS: Pantoprazole 40 mg EC Tab PO SCH ×2 (08:37→16:34)
--- NOTE | 2017-09-01 08:38 | PCM.PYCHPN ---
Psychiatric Progress Note - Psychiatric Progress Note Patient seen today, length of contact: 18 MIN Patient Chief Complaint: I AM STILL ANGRY AT MYSELFFOR WHAT I DID TO MYSELF Problems Identified/Issues Discussed: PY SEEN AND EXAMINED DISCUSSED WITH STAFF NAUSEA TALKED WITH PT ABOUT NOT ISOLATING ABOUT HAVING HER DAYS PLANNED NAUSEA Medical Problems: NAUAEA Diagnostic Results: REVIEWED DSM 5 Symptoms Update: DEPRESSED ISOLATIVE Medication Change: Yes (PROTONIX) Medical Record Reviewed: Yes Mental Status Examination - Cognitive Function Orientation: Person, Place, Situation, Time Memory: Intact Attention: WNL Concentration: Poor Association: WNL Fund of Knowledge: WNL - Mood Mood: Depressed, Anxious - Affect Affect: Constricted - Speech Speech: Appropriate - Formal Thought Process Formal Thought Process: No Impairment - Suicidal Ideation Suicidal Ideation: No - Homicidal Ideation Homicidal Ideation: No Goal/Treatment Plan - Goal/Treatment Plan Need for Continued Stay: Severe depression anxiety Progress Toward Problem(s) and Goals/Treatment Plan: BIPOLAR DISORDER LAMICTAL WELLBUTRIN AMBIEN SUPPORTIVE PSYCHOTHERAPY GROUP MILIEU AND RECREATIONAL THERAPY Estimated Date of D/C: 09/09/17 - Smoking Cessation Smoking Cessation Initiated: No
[2017-09-01 08:44] LABS: HEPATITIS B SURFACE AG Negative (NEGATIVE)
[2017-09-01 08:50] LABS: HEPATITIS B CORE AB NEGATIVE (NEGATIVE)
[2017-09-01 09:01] LABS: HEPATITIS C ANTIBODY NEGATIVE (NEGATIVE)
[2017-09-01 09:43] LABS: HEPATITIS A IGM NEGATIVE (NEGATIVE)
[2017-09-01] MEDS: buPROPion 150 mg/24 Hours XL Tab PO SCH (09:46)
[2017-09-01] MEDS: Hydrocortisone 1% Cream (30 GM) TOP SCH ×2 (09:53→17:56)
[2017-09-01] MEDS: Emtricitabine-Tenofovir 200 mg-300 mg Tab PO SCH (10:11)
--- NOTE | 2017-09-01 12:27 | PCM.PYCHPN ---
Psychiatric Progress Note - Psychiatric Progress Note Patient seen today, length of contact: 18 MIN Patient Chief Complaint: "Depressed" Problems Identified/Issues Discussed: The pt is seen, chart reviewed, case discussed with staff. The pt is compliant with medications and reports no side-effects. Symptoms are improving but needs more time to stabilize. After care discussed, support and psychoeducation given. She says she needs woman and trauma focused outpt treatment when she leaves. To be arranged tests are negative so far She lives in the same building with the jennifer who she has ambivalent relationship : she calls him "stalker" but initiated sex with him and felt guilty. Medication Change: No Medical Record Reviewed: Yes Mental Status Examination - Cognitive Function Orientation: Person, Place, Situation, Time Memory: Intact Attention: WNL Concentration: Poor Association: WNL Fund of Knowledge: WNL - Mood Mood: Depressed, Anxious - Affect Affect: Constricted - Speech Speech: Appropriate - Formal Thought Process Formal Thought Process: No Impairment - Suicidal Ideation Suicidal Ideation: No - Homicidal Ideation Homicidal Ideation: No Goal/Treatment Plan - Goal/Treatment Plan Need for Continued Stay: Severe depression anxiety Progress Toward Problem(s) and Goals/Treatment Plan: Start Lamictal as 125 mg and go up to 150 Prn medications All risks, benefits and alternatives of medications, including no medications, discussed and the patient understood and agreed. Attend groups and activities Individual therapy Psychoeducation and support Encourage compliance with meds and after care Refer to outpatient program Teach healthy lifestyle methods, i.e. diet, exercise, meditation Smoking cessation STD work up Estimated Date of D/C: 09/09/17
--- NOTE | 2017-09-01 15:51 | CP.PCM.PN ---
<HenryDashamoni Stafford - Last Filed: 09/01/17 16:00> Subjective - Date & Time of Evaluation Date of Evaluation: 09/01/17 Time of Evaluation: 07:05 - Subjective Subjective: Medicine progress note ( Dr. Marco Reza's service) Patient was seen and examined at bedside. Patient was resting comfortably in bed. Patient denies any acute symptoms or issues. Patient denies any foul vaginal discharge. Objective - Vital Signs/Intake and Output Vital Signs (last 24 hours): Temp Pulse Resp BP Pulse Ox 96.3 F L 96 H 18 131/85 99 09/01/17 05:58 09/01/17 05:58 09/01/17 05:58 09/01/17 05:58 09/01/17 05:58 - Medications Medications: Current Medications Acetaminophen (Tylenol 325mg Tab) 650 mg PO Q6 PRN PRN Reason: Headache Last Admin: 08/30/17 22:13 Dose: 650 mg Al Hydrox/Mg Hydrox/Simethicone (Maalox 30 Ml) 30 ml PO Q6H PRN PRN Reason: Indigestion / Heartburn Last Admin: 08/30/17 23:44 Dose: 30 ml Amlodipine Besylate (Norvasc) 10 mg PO DAILY [facility] Last Admin: 09/01/17 09:47 Dose: 10 mg Bupropion HCl (Wellbutrin Xl) 150 mg PO DAILY [facility] Last Admin: 09/01/17 09:46 Dose: 150 mg Diphenhydramine HCl (Benadryl) 25 mg PO HS [facility] Last Admin: 08/31/17 21:34 Dose: 25 mg Diphenhydramine HCl (Benadryl) 25 mg PO Q8H PRN PRN Reason: Allergy symptoms Stop: 09/02/17 22:01 Emtricitabine/Tenofovir (Truvada 200 Mg-300 Mg) 1 tab PO DAILY [facility] PRN Reason: Protocol Last Admin: 09/01/17 10:11 Dose: 1 tab Hydrocortisone (Cortizone 1% Cream) 0 gm TOP BID [facility] Last Admin: 09/01/17 09:53 Dose: 1 applic Hydroxyzine HCl (Atarax) 25 mg PO Q6 PRN PRN Reason: Anxiety Last Admin: 08/31/17 01:30 Dose: 25 mg Lamotrigine (Lamictal) 25 mg PO DAILY [facility] Last Admin: 09/01/17 09:46 Dose: 25 mg Lamotrigine (Lamictal) 100 mg PO QPM [facility] Last Admin: 08/31/17 18:10 Dose: 100 mg Miconazole Nitrate (Monistat 7 Vaginal Cream) 1 ea VG HS [facility] Last Admin: 08/31/17 21:40 Dose: 1 applic Nitrofurantoin Macrocrystals (Macrobid) 100 mg PO Q12H [facility] PRN Reason: Protocol Last Admin: 09/01/17 09:46 Dose: 100 mg Pantoprazole Sodium (Protonix Ec Tab) 40 mg PO ACBD [facility] Last Admin: 09/01/17 08:37 Dose: 40 mg Raltegravir (Isentress) 400 mg PO BID [facility] PRN Reason: Protocol Last Admin: 09/01/17 10:11 Dose: 400 mg Zolpidem Tartrate (Ambien) 5 mg PO HS [facility] Last Admin: 08/31/17 21:34 Dose: 5 mg - Labs Labs: 08/29/17 17:04 08/29/17 17:04 - Constitutional Appears: Well, No Acute Distress - Head Exam Head Exam: ATRAUMATIC, NORMAL INSPECTION - Eye Exam Eye Exam: EOMI - ENT Exam ENT Exam: Mucous Membranes Moist - Respiratory Exam Respiratory Exam: Clear to Ausculation Bilateral, NORMAL BREATHING PATTERN. absent: Prolonged Expiratory Phase, Rhonchi, Wheezes, Respiratory Distress - Cardiovascular Exam Cardiovascular Exam: REGULAR RHYTHM, +S1, +S2. absent: Murmur - GI/Abdominal Exam GI & Abdominal Exam: Soft, Normal Bowel Sounds. absent: Distended, Firm, Guarding, Rigid, Tenderness - Extremities Exam Extremities Exam: Normal Inspection. absent: Calf Tenderness, Pedal Edema - Back Exam Back Exam: NORMAL INSPECTION - Neurological Exam Neurological Exam: Alert, Awake, Oriented x3 - Psychiatric Exam Psychiatric exam: Normal Affect - Skin Skin Exam: Normal Color Assessment and Plan (1) At risk for sexually transmitted disease due to unprotected sex Assessment & Plan: Secondary to Bipolar manic episode Psychiatrist, Dr. Patel---> On board 08/31: HIV 1 and 2 antibody screen Negative and hepatitis panel negative, Awaiting HIV 4th generation * Patient started on PEP: Truvada 1 tab po QD and Isentress 400 mg po BID. Continue these medications for 1 month. Patient will require repeat HIV testing after completing course of these meds. Patient is made aware of this and is told to follow up at the [facility], [place]. * Plan B 1-step per patient request * F/u GC and Chylamdia Status: Acute (2) Dysuria Assessment & Plan: * Improved * UA positive for Nitrates and occ bacteria * Repea UA: Negative * urine culture: Contaminated, repeat UC * Macrobid 100 mg PO Q12 Status: Acute (3) Vagina itching Assessment & Plan: With clear Discharge * Diflucan 150mg PO once Status: Acute (4) Hypertension Assessment & Plan: continue Norvasc 10 mg Status: Acute (5) GERD (gastroesophageal reflux disease) Assessment & Plan: Protonix 40 mg daily Status: Acute (6) Rash Assessment & Plan: * 0.5% hydrocortisone cream to be applied to affected area BID Status: Acute (7) Psychiatric disorder Assessment & Plan: Psychiatry on Board as primary---> Dr. Patel * All management as per psych Status: Acute (8) Prophylactic measure Assessment & Plan: GI: on protonix 40mg PO daily for GERD DVT: Score risk 1: SCDs, Ambulating Disposition: Thank you for the consultation, medicine will sign off at this time. IF GC/CHYLMADIA comes back positive, please reconsult medicine team for Rocephin 1 gm IM dose All plans and management discussed with Dr. Marco Reza Status: Acute <Marco Reza J - Last Filed: 09/01/17 18:57> Objective - Vital Signs/Intake and Output Vital Signs (last 24 hours): Temp Pulse Resp BP Pulse Ox 96.3 F L 108 H 18 125/88 99 09/01/17 05:58 09/01/17 16:13 09/01/17 05:58 09/01/17 16:13 09/01/17 05:58 - Medications Medications: Current Medications Acetaminophen (Tylenol 325mg Tab) 650 mg PO Q6 PRN PRN Reason: Headache Last Admin: 08/30/17 22:13 Dose: 650 mg Al Hydrox/Mg Hydrox/Simethicone (Maalox 30 Ml) 30 ml PO Q6H PRN PRN Reason: Indigestion / Heartburn Last Admin: 08/30/17 23:44 Dose: 30 ml Amlodipine Besylate (Norvasc) 10 mg PO DAILY [facility] Last Admin: 09/01/17 09:47 Dose: 10 mg Bupropion HCl (Wellbutrin Xl) 150 mg PO DAILY [facility] Last Admin: 09/01/17 09:46 Dose: 150 mg Diphenhydramine HCl (Benadryl) 25 mg PO HS [facility] Last Admin: 08/31/17 21:34 Dose: 25 mg Diphenhydramine HCl (Benadryl) 25 mg PO Q8H PRN PRN Reason: Allergy symptoms Stop: 09/02/17 22:01 Emtricitabine/Tenofovir (Truvada 200 Mg-300 Mg) 1 tab PO DAILY [facility] PRN Reason: Protocol Last Admin: 09/01/17 10:11 Dose: 1 tab Hydrocortisone (Cortizone 1% Cream) 0 gm TOP BID [facility] Last Admin: 09/01/17 17:56 Dose: 1 applic Hydroxyzine HCl (Atarax) 25 mg PO Q6 PRN PRN Reason: Anxiety Last Admin: 08/31/17 01:30 Dose: 25 mg Lamotrigine (Lamictal) 25 mg PO DAILY [facility] Last Admin: 09/01/17 09:46 Dose: 25 mg Lamotrigine (Lamictal) 100 mg PO QPM [facility] Last Admin: 09/01/17 17:57 Dose: 100 mg Nitrofurantoin Macrocrystals (Macrobid) 100 mg PO Q12H [facility] PRN Reason: Protocol Last Admin: 09/01/17 09:46 Dose: 100 mg Pantoprazole Sodium (Protonix Ec Tab) 40 mg PO ACBD [facility] Last Admin: 09/01/17 16:34 Dose: Not Given Raltegravir (Isentress) 400 mg PO BID [facility] PRN Reason: Protocol Last Admin: 09/01/17 17:56 Dose: 400 mg Zolpidem Tartrate (Ambien) 5 mg PO HS [facility] Last Admin: 08/31/17 21:34 Dose: 5 mg - Labs Labs: 08/29/17 17:04 08/29/17 17:04 Attending/Attestation - Attestation I have personally seen and examined this patient.: Yes I have fully participated in the care of the patient.: Yes I have reviewed all pertinent clinical information, including history, physical exam and plan: Yes
[2017-09-02] MEDS: Pantoprazole 40 mg EC Tab PO SCH ×2 (08:23→16:04)
[2017-09-02 09:01] LABS: BASO # 0.1 K/uL (0.0-0.2); BASO % 0.8 % (0.0-2.0); EOS # 0.4 K/uL (0.0-0.7); EOS % 6.3 % (0.0-4.0); HEMOGLOBIN 12.6 g/dL (11.0-16.0); LYMPH # 2.2 K/uL (1.0-4.3); LYMPH % 32.6 % (20.0-40.0); MEAN CELL VOLUME 80.1 fL (81.0-99.0); MEAN CORPUSCULAR HEMOGLOBIN 26.1 pg (27.0-31.0); MEAN CORPUSCULAR HGB CONC 32.5 g/dL (33.0-37.0); MONO # 0.6 K/uL (0.0-0.8); MONO % 8.8 % (0.0-10.0); NEUT # 3.6 K/uL (1.8-7.0); NEUT % 51.5 % (50.0-75.0); NRBC % 0.1 % (0.0-2.0); RBC 4.84 Mil/uL (3.80-5.20); RED CELL DISTRIBUTION WIDTH 16.2 % (11.5-14.5); WHITE BLOOD COUNT 6.9 K/uL (4.8-10.8)
[2017-09-02 09:26] LABS: ALB/GLOB RATIO 1.2 (1.0-2.1); ALT/SGPT 15 U/L (9-52); AST/SGOT 27 U/L (14-36); BLOOD UREA NITROGEN 11 mg/dL (7-17); CALCIUM 8.9 mg/dl (8.6-10.4); GFR AFRICAN-AMERICAN > 60; GFR NON-AFRICAN AMERICAN > 60
[2017-09-02] MEDS: buPROPion 150 mg/24 Hours XL Tab PO SCH (09:54)
[2017-09-02] MEDS: Emtricitabine-Tenofovir 200 mg-300 mg Tab PO SCH (09:55)
[2017-09-02] MEDS: Hydrocortisone 1% Cream (30 GM) TOP SCH ×2 (09:56→17:05)
--- NOTE | 2017-09-02 12:30 | PCM.PYCHPN ---
Psychiatric Progress Note - Psychiatric Progress Note Patient seen today, length of contact: 17 min Patient Chief Complaint: "I feel down" Problems Identified/Issues Discussed: The pt is seen, chart reviewed, case discussed with staff. Support given, CBT and AK used briefly No new symptoms reported, improving slowly and needs more time No SEs from medications, risks discussed. After care discussed Medication Change: Yes (lamictal to 150) Medical Record Reviewed: Yes Mental Status Examination - Cognitive Function Orientation: Person, Place, Situation, Time Memory: Intact Attention: WNL Concentration: Poor Association: WNL Fund of Knowledge: WNL - Mood Mood: Depressed, Anxious - Affect Affect: Constricted - Speech Speech: Appropriate - Formal Thought Process Formal Thought Process: No Impairment - Suicidal Ideation Suicidal Ideation: No - Homicidal Ideation Homicidal Ideation: No Goal/Treatment Plan - Goal/Treatment Plan Need for Continued Stay: Severe depression anxiety, Discharge may exacerbated symptoms, Severe functional impairment Progress Toward Problem(s) and Goals/Treatment Plan: Lamictal 150 mg Prn medications All risks, benefits and alternatives of medications, including no medications, discussed and the patient understood and agreed. Attend groups and activities Individual therapy Psychoeducation and support Encourage compliance with meds and after care Refer to outpatient program Teach healthy lifestyle methods, i.e. diet, exercise, meditation Smoking cessation STD work up Estimated Date of D/C: 09/04/17
[2017-09-03 07:43] LABS: BASO # 0.1 K/uL (0.0-0.2); EOS # 0.4 K/uL (0.0-0.7); EOS % 5.3 % (0.0-4.0); HEMOGLOBIN 12.1 g/dL (11.0-16.0); LYMPH # 2.3 K/uL (1.0-4.3); LYMPH % 32.3 % (20.0-40.0); MEAN CORPUSCULAR HEMOGLOBIN 26.5 pg (27.0-31.0); MEAN CORPUSCULAR HGB CONC 33.1 g/dL (33.0-37.0); MEAN PLATELET VOLUME 8.3 fL (7.2-11.7); MONO # 0.7 K/uL (0.0-0.8); MONO % 10.3 % (0.0-10.0); NEUT # 3.6 K/uL (1.8-7.0); NEUT % 51.1 % (50.0-75.0); NRBC % 0.1 % (0.0-2.0); RBC 4.59 Mil/uL (3.80-5.20)
[2017-09-03] MEDS: Pantoprazole 40 mg EC Tab PO SCH ×2 (07:50→16:17)
[2017-09-03] MEDS ORDERED: Vitamins A & D Oint UD Foilpak TOP PRN (07:53)
[2017-09-03 08:02] LABS: ALB/GLOB RATIO 1.2 (1.0-2.1); ALT/SGPT 16 U/L (9-52); AST/SGOT 25 U/L (14-36); BLOOD UREA NITROGEN 11 mg/dL (7-17); CALCIUM 9.1 mg/dl (8.6-10.4); GFR AFRICAN-AMERICAN > 60; GFR NON-AFRICAN AMERICAN > 60
[2017-09-03] MEDS: Hydrocortisone 1% Cream (30 GM) TOP SCH ×2 (09:40→17:41)
[2017-09-03] MEDS: buPROPion 150 mg/24 Hours XL Tab PO SCH (09:40)
[2017-09-03] MEDS: Emtricitabine-Tenofovir 200 mg-300 mg Tab PO SCH (09:40)
[2017-09-04 06:19] VITALS: BP 127/84; PULSE 98; RESP 20; TEMP 98
[2017-09-04] MEDS: Pantoprazole 40 mg EC Tab PO SCH (08:25)
[2017-09-04] MEDS: Emtricitabine-Tenofovir 200 mg-300 mg Tab PO SCH (09:44)
[2017-09-04] MEDS: buPROPion 150 mg/24 Hours XL Tab PO SCH (09:45)
[2017-09-04] MEDS: Hydrocortisone 1% Cream (30 GM) TOP SCH (09:45)
--- NOTE | 2017-09-04 09:53 | PCM.PYCHDC ---
Mental Status Examination - Mental Status Examination Orientation: Person, Place, Situation, Time Memory: Intact Mood: Depressed, Anxious Affect: Broad Speech: Appropriate Attention: WNL Concentration: WNL Association: WNL Fund of Knowledge: WNL Formal Thought Process: No Impairment Suicidal Ideation: No Current Homicidal Ideation?: No Discharge Summary - Discharge Note Reason for Hospitalization: Depression Laboratory Data: Abnormal Lab Results 08/30/17 14:49 C.trachomatis RNA (TMA) Not detected N.gonorrhoeae RNA (TMA) Not detected Consultations:: List each consultation separately and include: 1. Reason for request. 2. Findings. 3. Follow-up Summary of Hospital Course include:: 1. Description of specific treatment plan utilized for patients during their course of treatmen. 2. Summarize the time- course for resolution of acute symptoms and/or regressed behaviors. 3. Describe issues identified and worked on during hospitalization. 4. Describe medication utilized. 5. Describe medical problems identified and treated. 6. Reassessment of suicide risk Summary of Hospital Course: On Admission: She is a 41 y/o LF, single, no child, unemployed and lives alone. She reports feeling suicidal last 2-3 days, depressed x weeks, and reports other depressive sxs. She has been dx'ed with bipolar d/o and reports a manic episode in the past but denies psychosis and jennifer now. A new stressor is an unprotected sex she had with someone she did not know much. She also has financial stressors. Denies drugs, alcohol or cigarettes. Past psych hx: 2 joaquín attempts years ago, previous psych admissions On Lamictal 100 mg, wellbutrin xl 150, ambien 10 Family psych hx: Adopted child but she known mo haad bipolar d/o Medical hx: GERD, HTN, obese Hospital Course: The pt was admitted and started on treatment with psychotherapy, support, psychoeducation and medications. NH and CBT used. The pt attended groups and activities, as well as milieu therapy. All the risks and benefits of medications are discussed and the patient understood and agreed. The pt improved with the treatments provided. After care discussed with the patient. She will go to [facility]. - Diagnosis (1) Depression Status: Acute - Final Diagnosis (DSM 5) Condition upon Discharge: IMPROVED Disposition: HOME/ ROUTINE Follow-up Treatment Plan: Continue below medications after discharge. Follow after care plan as discussed. Use relapse prevention skills Return to ER or call 911 if suicidal, homicidal or symptoms relapse. Stay away from stress, alcohol and drugs. See primary doctor regularly and get labs. Prescriptions/Medication Reconciliation: amLODIPine [Norvasc] 10 mg PO DAILY #30 tab buPROPion XL [Wellbutrin XL] 150 mg PO DAILY #30 t24 DiphenhydrAMINE [Benadryl] 25 mg PO HS #30 cap hydrOXYzine HCl [Atarax] 25 mg PO BID PRN #60 tab PRN Reason: Anxiety lamoTRIgine [Lamictal] 100 mg PO QPM #30 tab lamoTRIgine [Lamictal] 50 mg PO DAILY #30 tab Nitrofurantoin Macrocrystals [Macrobid] 100 mg PO Q12H #10 cap Pantoprazole [Protonix EC Tab] 40 mg PO Q12 #60 ect
== END 2017-09-04 11:01 | disposition home or self-care (01) | DRG 885 ==
LOC: C.ER 16:16 → C.5E 19:48
PROVIDERS: ADMIT Family Medicine; ATTEND Family Medicine
PROC: GZHZZZZ Group Psychotherapy (ICD-10-PCS; principal; 2017-08-30)
PROC: GZ56ZZZ Individual Psychotherapy, Supportive (ICD-10-PCS; 2017-08-30)
PROC: GZ58ZZZ Individual Psychotherapy, Cognitive-Behavioral (ICD-10-PCS; 2017-08-30)
DX: F31.4 Bipolar disorder, current episode depressed, severe, without psychotic features (principal); R45.851 Suicidal ideations; Z68.42 Body mass index [BMI] 45.0-49.9, adult; I10 Essential (primary) hypertension; K21.9 Gastro-esophageal reflux disease without esophagitis; E66.9 Obesity, unspecified; Z20.2 Contact with and (suspected) exposure to infections with a predominantly sexual mode of transmission; R30.0 Dysuria; B37.3 Candidiasis of vulva and vagina; Z72.51 High risk heterosexual behavior; F41.9 Anxiety disorder, unspecified